=== PATIENT | male | born 1965 | race Caucasian/White ===

== ENCOUNTER → 2018-01-16 08:23 | Outpatient (CLI) | payer OTHER, SELFPAY ==
[2018-01-16 09:25] LABS: Absolute Neutrophil Count 3.8 X10^3/uL (2.0-7.7); Basophil# 0.08 X10^3/uL; Basophil% 1.1 % (0-1); Eosinophil# 0.73 X10^3/uL; Eosinophils% 9.8 % (0-5); Hematocrit 46.3 % (40-54); Hemoglobin 15.8 g/dl (13.0-16.5); Lymphocyte % 28.1 % (19-41); Mean Corp Hgb Conc 34.1 g/gl (32-36); Mean Corpuscular Hgb 30.2 pg (27.0-32.0); Mean Corpuscular Volume 88.5 fL (80-94); Mean Platelet Vol. 10.8 fl (6.2-12.0); Monocyte# 0.75 X10^3/uL; Neutrophil # 3.79 X10^3/uL (2.7-7.7); Neutrophil % 50.7 % (47-70); Platelet Count 227 K/mm3 (150-450); RBC Distribution Width CV 13.1 % (11.6-14.6); RBC Distribution Width SD 42.6 fl (35.1-43.9); Red Blood Count 5.23 M/mm3 (4.6-6.2); White Blood Count 7.5 K/mm3 (4.4-11.0)
[2018-01-16 09:28] LABS: POSITIVE COUNT NO; POSITIVE DIFFERENTIAL NO; POSITIVE MORPHOLOGY NO
[2018-01-16 09:41] LABS: Hemoglobin A1c 7.5 % (4.2-6.3)
[2018-01-16 10:08] LABS: ALB/GLOB Ratio 1.2 RATIO (0.9-2.4); AST(SGOT) 11 U/L (15-37); Alanine Aminotransfer ALT/SGPT 19 U/L (16-61); Albumin, Serum 3.5 g/dL (3.2-5.0); Alkaline Phosphatase 82 U/L (45-117); Anion Gap 7 (5-15); BUN 13 mg/dL (7-18); BUN/Creat Ratio 14.1 RATIO (10-20); Calcium,Total 8.2 mg/dL (8.5-10.1); Chloride 110 mmol/L (98-107); Cholesterol 109 mg/dL (200); Creatinine, Serum 0.92 mg/dL (0.70-1.30); EST Glomerular Filtration Rate 92 mL/min (>60); Est Glom Filt Rate - Afr Amer 111 mL/min (>60); Glucose 136 mg/dL (74-106); High Density Lipoprotein 40 mg/dL; Potassium 4.1 mmol/L (3.5-5.1); Protein, Total 6.5 g/dL (6.4-8.2); Sodium Level 143 mmol/L (136-145); Triglycerides 51 mg/dL; Very Low Density Lipoprotein 10 mg/dL (5-40)
[2018-01-16 11:28] LABS: Microalbumin,Random Urine 20.2 mg/L (NO RANGE EST.); Microalbumin:Creatinine Ratio 13.9 mg/g CRE (<30 mg/g CRE)
== END ==
PROVIDERS: Family Provider Internal Medicine; PCP Internal Medicine; Visit Provider Internal Medicine
DX: E10.9 Type 1 diabetes mellitus without complications (principal); E78.5 Hyperlipidemia, unspecified; I10 Essential (primary) hypertension
CPT/HCPCS: 36415; 80053; 80061; 82043; 82570; 83036; 85025

== ENCOUNTER → 2018-03-14 16:27 | Outpatient (CLI) | payer OTHER, SELFPAY ==
--- NOTE | 2018-03-14 08:10 | COLBX_PTH ---
PATIENT: SAULO LEAHY LOC: [facility] U#:[id number] AGE/SX: 60/M ROOM: RE03/14/[address]: Dr. Remigio Vegas MD : [id number] BED: DIS: SPEC #: [id number] RECD: 03/14/18 15:35 STATUS: CHANDANA JENNYFER #: [id number] ZAYNAB: 03/14/18 08:[address]: Remigio Vegas DEPT: SURGICAL PATHOLOGY RECD BY: Samir Israel ENTERED: 03/17/18 08:36 SP TYPE: COLON BX OTHR DR: MARIELOS Tissues: Transverse colon Procedures: Surgery Specimen Level IV HEADER OPERATION: Colonoscopy PRE-OP DIAGNOSIS: Screening / polyp TISSUE SUBMITTED: Transverse colon, rule out adenoma MICROSCOPIC DIAGNOSIS Transverse colon polyp, biopsy: Polypoid fragment of colonic mucosa and submucosa. AM:chauncey 03/18/18 COMMENT Neither adenomatous nor hyperplastic change is seen. MICROSCOPIC DESCRIPTION Slides are reviewed. Sections show normal glandular colonic epithelium overlying a prominent polypoid submucosal tissue consisting of loose stroma and mild vascular ectasia. GROSS DESCRIPTION Received in fixative is one container labeled with the patient's name and designated transverse colon. The specimen consists of a baldwin-pink polyp measuring 0.7 x 0.5 x 0.4 cm. The specimen is totally submitted in one cassette. / SJ:chauncey 03/17/18 TC:1 CPT: 36853
== END ==
PROVIDERS: Visit Provider Internal Medicine Gastroenterology
DX: Z12.11 Encounter for screening for malignant neoplasm of colon (principal); K63.5 Polyp of colon
CPT/HCPCS: 88305

== ENCOUNTER → 2019-05-26 | Outpatient (CLI) | payer OTHER, SELFPAY ==
[2019-05-26 11:04] LABS: Hemoglobin A1c 6.8 % (4.2-6.3)
[2019-05-26 11:10] LABS: ALB/GLOB Ratio 1.2 RATIO (0.9-2.4); AST(SGOT) 12 U/L (15-37); Alanine Aminotransfer ALT/SGPT 23 U/L (16-61); Albumin, Serum 3.9 g/dL (3.2-5.0); Alkaline Phosphatase 75 U/L (45-117); Anion Gap 7 (5-15); BUN 19 mg/dL (7-18); BUN/Creat Ratio 21.5 RATIO (10-20); Chloride 107 mmol/L (98-107); Cholesterol 176 mg/dL (200); Creatinine, Serum 0.88 mg/dL (0.70-1.30); EST Glomerular Filtration Rate 96 mL/min (>60); Est Glom Filt Rate - Afr Amer 116 mL/min (>60); Globulin 3.2 g/dL (2.2-4.2); Glucose 115 mg/dL (74-106); High Density Lipoprotein 48 mg/dL; Potassium 4.2 mmol/L (3.5-5.1); Protein, Total 7.1 g/dL (6.4-8.2); Sodium Level 143 mmol/L (136-145); Triglycerides 72 mg/dL; Very Low Density Lipoprotein 14 mg/dL (5-40)
== END | disposition home or self-care (01) ==
LOC: LAB.FUTURE 09:29 → LAB 09:33
PROVIDERS: Family Provider Internal Medicine; PCP Internal Medicine; Referring Provider Nurse Practitioner; Visit Provider Nurse Practitioner
DX: E10.9 Type 1 diabetes mellitus without complications (principal)
CPT/HCPCS: 36415; 80053; 80061; 83036

== ENCOUNTER → 2019-10-23 | Outpatient (CLI) | payer OTHER, SELFPAY ==
[2019-07-06 15:38] VITALS: BMI 34.1
[2019-10-23 07:32] LABS: Microalbumin,Random Urine 27.1 mg/L (NO RANGE EST.); Microalbumin:Creatinine Ratio 29.1 mg/g CRE (<30 mg/g CRE)
[2019-10-23 07:55] LABS: ALB/GLOB Ratio 1.2 RATIO (0.9-2.4); AST(SGOT) 15 U/L (15-37); Alanine Aminotransfer ALT/SGPT 26 U/L (16-61); Albumin, Serum 3.5 g/dL (3.2-5.0); Alkaline Phosphatase 82 U/L (45-117); Anion Gap 0 (5-15); BUN 15 mg/dL (7-18); BUN/Creat Ratio 15.3 RATIO (10-20); Calcium,Total 8.7 mg/dL (8.5-10.1); Chloride 111 mmol/L (98-107); Cholesterol 150 mg/dL (200); Creatinine, Serum 0.98 mg/dL (0.70-1.30); EST Glomerular Filtration Rate 85 mL/min (>60); Est Glom Filt Rate - Afr Amer 103 mL/min (>60); Globulin 2.9 g/dL (2.2-4.2); Glucose 130 mg/dL (74-106); High Density Lipoprotein 41 mg/dL; Potassium 4.1 mmol/L (3.5-5.1); Protein, Total 6.4 g/dL (6.4-8.2); Sodium Level 141 mmol/L (136-145); Triglycerides 92 mg/dL; Very Low Density Lipoprotein 18 mg/dL (5-40)
[2019-10-23 08:00] LABS: Hemoglobin A1c 7.1 % (4.2-6.3)
== END | disposition home or self-care (01) ==
LOC: LAB 06:45
PROVIDERS: PCP Internal Medicine; Referring Provider Nurse Practitioner; Visit Provider Nurse Practitioner
DX: E11.9 Type 2 diabetes mellitus without complications (principal)
CPT/HCPCS: 36415; 80053; 80061; 82043; 82570; 83036

== ENCOUNTER → 2020-01-27 14:03 | Outpatient (CLI) | payer OTHER, SELFPAY ==
[2020-01-27 11:50] VITALS: BMI 34.1
[2020-01-27 15:10] LABS: Absolute Lymphocyte Count 1.73 X10^3/uL (0.83-4.51); Absolute Neutrophil Count 4.7 X10^3/uL (2.0-7.7); Basophil# 0.08 X10^3/uL; Eosinophil# 0.43 X10^3/uL; Eosinophils% 5.6 % (0-5); Hematocrit 50.5 % (40-54); Hemoglobin 16.5 g/dL (13.0-16.5); Lymphocyte # 1.73 X10^3/ul (4.0); Lymphocyte % 22.6 % (19-41); Mean Corp Hgb Conc 32.7 g/dL (32-36); Mean Corpuscular Hgb 29.7 pg (27.0-32.0); Mean Platelet Vol. 11.1 fl (6.2-12.0); Monocyte# 0.64 X10^3/uL; Monocyte% 8.4 % (0-10); NRBC Flagged by Analyzer 0 % (0-5); Neutrophil # 4.71 X10^3/uL (2.7-7.7); Neutrophil % 61.7 % (47-70); Platelet Count 250 K/mm3 (150-450); RBC Distribution Width CV 12.9 % (11.6-14.6); RBC Distribution Width SD 42.5 fl (35.1-43.9); Red Blood Count 5.55 M/mm3 (4.6-6.2); White Blood Count 7.6 K/mm3 (4.4-11.0)
[2020-01-27 15:37] LABS: ALB/GLOB Ratio 1.1 RATIO (0.9-2.4); AST(SGOT) 16 U/L (15-37); Alanine Aminotransfer ALT/SGPT 25 U/L (16-61); Albumin, Serum 3.9 g/dL (3.2-5.0); Alkaline Phosphatase 88 U/L (45-117); Anion Gap 7 (5-15); BUN 17 mg/dL (7-18); BUN/Creat Ratio 17.6 RATIO (10-20); Calcium,Total 9.3 mg/dL (8.5-10.1); Chloride 107 mmol/L (98-107); Cholesterol 174 mg/dL (200); Creatinine, Serum 0.96 mg/dL (0.70-1.30); EST Glomerular Filtration Rate 87 mL/min (>60); Est Glom Filt Rate - Afr Amer 105 mL/min (>60); Globulin 3.4 g/dL (2.2-4.2); Glucose 134 mg/dL (74-106); High Density Lipoprotein 46 mg/dL; Potassium 4.4 mmol/L (3.5-5.1); Protein, Total 7.3 g/dL (6.4-8.2); Sodium Level 139 mmol/L (136-145); Thyroid Stim Hormone (TSH) 2.68 uIU/mL (0.358-3.74); Triglycerides 61 mg/dL; Very Low Density Lipoprotein 12 mg/dL (5-40)
[2020-01-27 15:46] LABS: Microalbumin,Random Urine 28.2 mg/L (NO RANGE EST.); Microalbumin:Creatinine Ratio 66.5 mg/g CRE (<30 mg/g CRE)
--- OUTSIDE RECORDS SUMMARY | 2020-06-21 14:40 | XMS RPT_ITS | CCD ---
:1965 External Reference #:[id number] Author Organization [facility] Care Team Providers Name Role Phone Fatou NELSON, Rebecca Muniz Unavailable Unavailable Medications Medication Name Sig Date Prescriber Location ascorbic acid / cuprous OCUVITE-LUTEIN CAPS [facility] oxide / lutein / One tablet by mouth Grou p (81794) vitamin E / zinc oxide daily MULTIPLE VITAMINS-MINERALS [id number] Jo Acuna NP aspirin ASPIRIN 325 MG TABS [facility] One tablet by mouth Group (4 4811) daily ASPIRIN 83693399898 Qiana Valle LPN atorvastatin LIPITOR 20 MG TABS One [facility] tablet by mouth daily Group (79469) ATORVASTATIN CALCIUM 84750785301 Qiana Valle LPN BLOOD GLUCOSE YUE CONTOUR NEXT [facility] MONITORING SUPPL MONITOR w/Device KIT [place] [facility] (92506) Use as directed. BLOOD GLUCOSE MONITORING SUPPL 24085346032 Jo Acuna NP GLUCOSE BLOOD YUE CONTOUR NEXT [facility] TEST STRP Use as Group (4431 1) directed to test blood glucose up to 3 times a day. GLUCOSE BLOOD 37617116949 Jo Acuna NP INSULIN INFUSION PUMP MINIMED 630G INSULIN [facility] PUMP KIT Use as Group (21036 ) directed INSULIN INFUSION PUMP 60230099402 Jo Acuna NP insulin lispro HUMALOG 100 UNIT/ML [facility] SOCT 97 units daily Group (4 4785) delivered via pump INSULIN LISPRO 86662836540 Qiana Valle LPN lisinopril LISINOPRIL 10 MG TABS [facility] One tablet by mouth Group (4 0518) daily LISINOPRIL 42913354302 Qiana Valle LPN magnesium M2 MAGNESIUM 100 MG 09-26-2016 [facility] CAPS One tablet by Group (44 451) mouth daily MAGNESIUM 04463795351 Tomas Sandoval MD M2 MAGNESIUM 100 MG CAPS One tablet by mouth daily [facility] (28534) MAGNESIUM 86744989654 Qiana Valle PRODUCT SAFETY COORDINATOR metoprolol METOPROLOL SUCCINATE ER 100 MG [facility] (30368) [id number] One tablet by mouth daily METOPROLOL SUCCINATE 75281873713 Qiana Fournieri PRODUCT SAFETY COORDINATOR potassium,chelated POTASSIUM 99 MG TABS One tablet by [facility] (92127) mouth daily POTASSIUM 93376966064 Jo Acuna PRINCIPAL ASSOCIATE Problems Active Problems Category Problem Name Status Date Location Cardiac and circulatory Patent foramen ovale Active 7 - [facility] congenital anomalies Group ( 84849) Coronary atherosclerosis Atherosclerotic heart Active 017 - [facility] and other heart disease disease of [place] Group (98646) coronary artery without angina pectoris Diabetes mellitus Presence of insulin pump Active 09-17-2016 - [facility] without complication (external) (internal) Group (73633) Disorders of lipid Hyperlipidemia Active 09-17-2016 - [facility] metabolism Group (02332) Essential hypertension Essential hypertension Active 09-17-19 17 - [facility] (87823) Other nutritional; Body mass index 30+ - Active 09-17-2016 - [facility] endocrine; and metabolic obesity - 09-25-2016 [facility] (81919) disorders - Past or Other Problems Category Problem Name Status Date Location Other aftercare Other terminal worker Completed 09-25-2016 - [facility] (current) drug therapy (4469 1) Results Result Name Value Range Unit Interpretation Flag Date Location clinical lists update: preload on 2017-04-03 Left ventricular 55 % Invalid Interpretation 04-03-2017 - [facility] Ejection fraction Code 04-03-2017 Rubina henry ([id number]) replaced document: [facility] ecg observati ons on 2016-09-26 electrocardiogram Sinus Rhythm Invalid 7 - [facility] interpretation -Poor R-wave Interpretation 017 Heart progression Code Group -nonspecific (01237) -consider old anterior infarct. BORDERLINE GE use only - for 407 ms Invalid 09-26-2016 - [place] [facility] import when Interpretation Heart terms are not Code Group otherwise specified (57627) P wave axis, 49 deg Invalid 09-26-2016 - [facility] electrocardiogram Interpretation 017 [facility] Code Group (12555) CT interval, 148 ms Invalid 09-26-2016 - [facility] electrocardiogram Interpretation 017 [facility] Code Group (87966) Pulse (Heart Rate) 71 BPM /min Invalid 09-26-2016 - [place] Interpretation 09-26-2016 Hear t Code Group (92125) QRS axis, 46 deg Invalid 09-26-2016 - [place] electrocardiogram Interpretation 017 [facility] Code Group (85106) QRS duration, 96 ms Invalid 09-26-2016 - [facility] electrocardiogram Interpretation 017 [facility] Code Group (93968) QT interval, new path ms Invalid 09-26-2016 - [place] [facility] Interpretation 017 [facility] Code Group (82159) T wave axis, 53 deg Invalid 09-26-2016 - [facility] electrocardiogram Interpretation 017 Heart Code Group (37321) office visit on 03-09-18 Documentation of Done Invalid Interpretation 09-26-2016 - [facility] current medications Code 09-26-2016 Group (16949) (procedure) office visit: new patient consult on 2016-09-20 Adolescent 0 Invalid 09-20-2016 - [facility] depression Interpretation Code 7 Group (09686) screening assessment Adult depression 1 Invalid 09-20-2016 - [facility] screening Interpretation Code 09-20-2016 Group (84449) assessment Alcoholism no Invalid 09-20-2016 - [facility] counseling Interpretation Code 7 Group (58980) (procedure) Dietary yes Invalid 09-20-2016 - [facility] management Interpretation Code 7 Group (80965) education, guidance, and counseling (procedure) Tobacco use CPHS Never smoker Invalid 09-20-2016 - [facility] Interpretation Code 09-20-2016 Group (43169) clinical lists update: preload on 2016-09-12 Anion gap 7 mmol/L Invalid 09-12-2016 - [facility] Interpretation Code 09-12-2016 Group (17945) BUN/Creatinine 10.9 mg/mg Invalid 09-12-2016 - [facility] Ratio Interpretation Code 09-12-2016 Group (81621) Calcium 8.5 mg/dL Invalid 09-12-2016 - [facility] Interpretation Code 09-12-2016 Group (80394) Chloride 107 mmol/L Invalid 09-12-2016 - [facility] Interpretation Code 09-12-2016 Group (76123) Cholesterol 146 mg/dL Invalid 09-12-2016 - [facility] Interpretation Code 09-12-2016 Group (72188) CO2 27 mmol/L Invalid 09-12-2016 - [facility] Interpretation Code 09-12-2016 Group (59987) Creatinine 0.92 mg/dL Invalid 09-12-2016 - [facility] Interpretation Code 09-12-2016 Group (75416) Glucose 144 mg/dL High 09-12-2016 - [facility] 09-12-2016 Group (44 691) HbA1c 7.7 % Invalid 09-12-2016 - [facility] Interpretation Code 09-12-2016 Group (85716) HDL Cholesterol 48 mg/dL Invalid 09-12-2016 - [facility] Interpretation Code 09-12-2016 Group (46878) Hematocrit (HCT) 46.4 % Invalid 09-12-2016 - [facility] Interpretation Code 09-12-2016 Group (72112) Hemoglobin (HGB) 16.1 g/dL Invalid 09-12-2016 - [facility] Interpretation Code 09-12-2016 Group (80945) LDL Cholesterol 89 mg/dL Invalid 09-12-2016 - [facility] Interpretation Code 09-12-2016 Group (93221) Platelets 243 10*3/mm3 Invalid 09-12-2016 - [facility] Interpretation Code 09-12-2016 Group (58085) Potassium 4.1 mmol/L Invalid 09-12-2016 - [facility] Interpretation Code 09-12-2016 Group (71932) Sodium 141 mmol/L Invalid 09-12-2016 - [facility] Interpretation Code 09-12-2016 Group (35377) Triglyceride 43 mg/dL Invalid 09-12-2016 - [facility] Interpretation Code 09-12-2016 Group (26738) Urea nitrogen 10 mg/dL Invalid 09-12-2016 - [facility] Interpretation Code 09-12-2016 Group (36290) Vital Signs Vital Sign Description Value / Unit Date Location The following section is limited to 5 en tries per type and includes entries from the following time range: [id number] 8. BMI (Body Mass Index) 33.75 kg/m2 09-26-2016 - 09-26-2016 [facility] (21905) Body Temperature 98.6 [degF] 09-20-2016 - 09-20-2016 [facility] (80267) BP Diastolic 60 mm[Hg] 09-26-2016 - 09-26-2016 [facility] (89937) BP Systolic 140 mm[Hg] 09-26-2016 - 09-26-2016 [facility] (36514) BSA (Body Surface Area) 2.14 m2 09-26-2016 - 09-26-2016 [facility] (34216) Height 172.72 cm 09-20-2016 - 09-20-2016 [facility] (40846) Pulse (Heart Rate) 76 /min 09-26-2016 - 09-26-2016 [facility] (24637) Respiratory Rate 20 /min 09-26-2016 - 09-26-2016 [facility] (79252) Weight 100.7 kg 09-26-2016 - 09-26-2016 [facility] (77834) Procedures Procedure Name Date Provider Location [facility] 09-26-2016 - Tomas Sandoval [facility] 09-26-2016 ([id number]) Echocardiography 09-26-2016 - Tomas Sandoval MD [facility] 10-15-2016 (88379) Electrocardiogram, complete 09-26-2016 - Tomas Sandoval MD [facility] 09-26-2016 (43318) Follow Up Appt 6 months 09-26-2016 - Tomas Sandoval MD [facility] 09-26-2016 (84822) Nuclear stress test -exercise 09-26-2016 - Tomas Sandoval MD [facility] 10-15-2016 (17414) Plan of Treatment Plan Description Date Location Appointment Appointment 04-09-2017 - [facility] 04-09-2017 (39791) [facility] 09-26-2016 - [facility] 09-26-2016 (72326) Echocardiogram (complete) Echocardiogram (complete) 09-26-2016 - [facility] 09-26-2016 (32351) EKG (In office) EKG (In office) 09-26-2016 - [facility] 09-26-2016 (89450) Follow Up Appt 6 months Follow Up Appt 6 months 09-26-2016 - [facility] 09-26-2016 (67197) Nuclear stress test Nuclear stress test 09-26-2016 - [facility] -exercise -exercise 09-26-2016 (95772) *Microalbumin, Creatine *Microalbumin, Creatine 09-20-2016 - [facility] Ratio, rand urine Ratio, rand urine 09-24-2016 (35509) Additional Source Comments FOR RECORDS PERTAINING TO PATIENTS WHO ARE OR HAVE BEEN ENROLLED IN A CHEMICAL DEPENDENCY/SUBSTANCE ABUSE PROGRAM, SOME INFORMATION MAY BE OMITTED. This clinical summary was aggregated from multiple sources. Caution should be exercised in using it in the provision of clinical care. This summary normalizes information from multiple sources, and as a consequence, information in this document may materially changethe coding, format and clinical context of patient data. In addition, data may be omittedin some cases. CLINICAL DECISIONS SHOULD BE BASED ON THE PRIMARY CLINICAL RECORDS. [employer] provides no warranty or guarantee of the accuracy or completeness of information in this document.
== END ==
PROVIDERS: PCP Nurse Practitioner Family; Referring Provider Nurse Practitioner Family; Visit Provider Nurse Practitioner Family
DX: I25.10 Atherosclerotic heart disease of native coronary artery without angina pectoris (principal); I10 Essential (primary) hypertension; E78.5 Hyperlipidemia, unspecified; E10.9 Type 1 diabetes mellitus without complications; R60.0 Localized edema
CPT/HCPCS: 80053; 80061; 82043; 82570; 84443; 85025

== ENCOUNTER → 2020-02-15 08:58 | Outpatient (CLI) | payer OTHER, SELFPAY ==
[2020-01-27 11:50] VITALS: BMI 34.1
--- NOTE | 2020-02-15 08:58 | ECHOD_ITS ---
Reason For Study: CAD Procedure This was a 2D Doppler, Color Flow transthoracic echocardiogram. Technically difficult study, best apical images taken supine. Exam performed in department. Left Ventricle Normal LV size. Mild concentric left ventricular hypertrophy. The estimated ejection fraction is 60 %. Left ventricular systolic function is normal. Stage 1 diastolic dysfunction. No regional wall motion abnormalities noted. Right Ventricle Normal RV size. Atria Normal left atrium. Normal right atrium. Mitral Valve Normal mitral valve. Tricuspid Valve Normal tricuspid valve. Aortic Valve Normal aortic valve. Trisinus/trileaflet aortic valve. Pulmonic Valve Normal pulmonic valve. Great Vessels Normal aortic root. The pulmonary artery is normal size. Normal inferior vena cava. Pericardium/Pleural No pericardial effusion. MMode/2D Measurements & Calculations LVIDd: 4.7 cm IVSd: 1.3 cm Ao root diam: 3.4 cm LVIDs: 3.0 cm LVPWd: 1.2 cm LA dimension: 4.6 cm FS: 35.7 % LAV(MOD-bp): 38.4 ml LA A4 area: 14.2 cm2 LAV(MOD-bp) Indexed: 17.9 ml/m2 LAV(MOD-sp2): 39.0 ml LAV(MOD-sp4): 35.7 ml Time Measurements MV dec time: 0.31 sec Doppler Measurements & Calculations MV E max dmitriy: 56.0 cm/sec Lat Peak E' Dmitriy: 48.9 cm/sec Med Peak E' Dmitriy: 5.9 cm/sec MV A max dmitriy: 105.2 cm/sec E/E' lat: 1.1 E/E' med: 9.4 MV E/A: 0.53 MV V2 max: 113.6 cm/sec MV P1/2t max dmitriy: 68.4 cm/sec Ao V2 max: 106.9 cm/sec MV max P.2 mmHg MV P1/2t: 91.8 msec Ao max P.6 mmHg MV V2 mean: 56.5 cm/sec MV dec slope: 218.1 cm/sec2 MV mean P.5 mmHg MVA(P1/2t): 2.4 cm2 MV V2 VTI: 22.4 cm PA V2 max: 109.8 cm/sec Interpretation Summary Normal LV size. The estimated ejection fraction is 60 %. Left ventricular systolic function is normal. Stage 1 diastolic dysfunction. Mild concentric left ventricular hypertrophy. Ordering Physician: Ashish Campuzano Referring Physician: Ashish Campuzano Performed By: Miles Fleming RCS
--- NOTE | 2020-02-15 08:58 | EKG12_ITS ---
Test Reason : ILLNESS Blood Pressure : / mmHG Vent. Rate : 080 BPM Atrial Rate : 080 BPM P-R Int : 164 ms QRS Dur : 108 ms QT Int : 380 ms P-R-T Axes : 054 019 053 degrees QTc Int : 438 ms Normal sinus rhythm Inferior infarct , age undetermined Abnormal ECG Confirmed by JASIEL LOYD, MARTY ([id number]), sound editor HORTENCIA GREEN ([id number]) on 02/16/2020 10:08:37 AM Referred By: Ashish Campuzano Confirmed By:MARTY WEATHERS MD
--- OUTSIDE RECORDS SUMMARY | 2020-06-26 09:24 | XMS RPT_ITS | CCD ---
:1965 External Reference #:[id number] Author Organization [facility] Care Team Providers Name Role Phone Fatou NELSON, Rebecca Muniz Unavailable Unavailable Medications Medication Name Sig Date Prescriber Location ascorbic acid / cuprous OCUVITE-LUTEIN CAPS [facility] oxide / lutein / One tablet by mouth Grou p (16224) vitamin E / zinc oxide daily MULTIPLE VITAMINS-MINERALS [id number] Jo Acuna NP aspirin ASPIRIN 325 MG TABS [facility] One tablet by mouth Group (4 0213) daily ASPIRIN 62286258617 Qiana Valle LPN atorvastatin LIPITOR 20 MG TABS One [facility] tablet by mouth daily Group (95284) ATORVASTATIN CALCIUM 97691775148 Qiana Valle LPN BLOOD GLUCOSE YUE CONTOUR NEXT [facility] MONITORING SUPPL MONITOR w/Device KIT [facility] (56378) Use as directed. BLOOD GLUCOSE MONITORING SUPPL 98250229801 Jo Acuna NP GLUCOSE BLOOD YUE CONTOUR NEXT [facility] TEST STRP Use as Group (4414 1) directed to test blood glucose up to 3 times a day. GLUCOSE BLOOD 92104660881 Jo Acuna NP INSULIN INFUSION PUMP MINIMED 630G INSULIN [facility] PUMP KIT Use as Group (24403 ) directed INSULIN INFUSION PUMP 36968941430 Jo Acuna NP insulin lispro HUMALOG 100 UNIT/ML [facility] SOCT 97 units daily Group (4 1356) delivered via pump INSULIN LISPRO 90132020644 Qiana Valle LPN lisinopril LISINOPRIL 10 MG TABS [facility] One tablet by mouth Group (4 2504) daily LISINOPRIL 67067108310 Qiana Valle LPN magnesium M2 MAGNESIUM 100 MG 09-26-2016 [facility] CAPS One tablet by Group (44 966) mouth daily MAGNESIUM 17052679187 Tomas Sandoval MD M2 MAGNESIUM 100 MG CAPS One tablet by mouth daily [facility] (63306) MAGNESIUM 40117813570 Qiana Valle EXHIBIT SPECIALIST metoprolol METOPROLOL SUCCINATE ER 100 MG [facility] (42538) [id number] One tablet by mouth daily METOPROLOL SUCCINATE 40392924854 Qiana Fournieri EXHIBIT SPECIALIST potassium,chelated POTASSIUM 99 MG TABS One tablet by [facility] (38704) mouth daily POTASSIUM 30723104979 Jo Acuna TELEVISION HOST Problems Active Problems Category Problem Name Status Date Location Cardiac and circulatory Patent foramen ovale Active 7 - [facility] congenital anomalies Group ( 65438) Coronary atherosclerosis Atherosclerotic heart Active 017 - [facility] and other heart disease disease of [place] Group (13411) coronary artery without angina pectoris Diabetes mellitus Presence of insulin pump Active 09-17-2016 - [facility] without complication (external) (internal) Group (93196) Disorders of lipid Hyperlipidemia Active 09-17-2016 - [facility] metabolism Group (81359) Essential hypertension Essential hypertension Active 09-17-19 17 - [facility] (69325) Other nutritional; Body mass index 30+ - Active 09-17-2016 - [facility]; and metabolic obesity - 09-25-2016 [facility] (95404) disorders - Past or Other Problems Category Problem Name Status Date Location Other aftercare Other intermission coordinator Completed 09-25-2016 - [facility] (current) drug therapy (4469 1) Results Result Name Value Range Unit Interpretation Flag Date Location clinical lists update: preload on 2017-04-03 Left ventricular 55 % Invalid Interpretation 04-03-2017 - [facility] Ejection fraction Code 04-03-2017 Rubina henry (11715) replaced document: [facility] ecg observati ons on 2016-09-26 electrocardiogram Sinus Rhythm Invalid 7 - [facility] interpretation -Poor R-wave Interpretation 017 Heart progression Code Group -nonspecific (58926) -consider old anterior infarct. BORDERLINE GE use only - for 407 ms Invalid 09-26-2016 - [place] [facility] import when Interpretation Heart terms are not Code Group otherwise specified (30707) P wave axis, 49 deg Invalid 09-26-2016 - [facility] electrocardiogram Interpretation 017 [facility] Code Group (78755) NV interval, 148 ms Invalid 09-26-2016 - [facility] electrocardiogram Interpretation 017 [facility] Code Group (45587) Pulse (Heart Rate) 71 BPM /min Invalid 09-26-2016 - [place] Interpretation 09-26-2016 Hear t Code Group (21653) QRS axis, 46 deg Invalid 09-26-2016 - [place] [facility]ogram Interpretation 017 [facility] Code Group (62050) QRS duration, 96 ms Invalid 09-26-2016 - [place] [facility] electrocardiogram Interpretation 017 [facility] Code Group (35645) QT interval, new path ms Invalid 09-26-2016 - [place] [facility] Interpretation 017 [facility] Code Group (96319) T wave axis, 53 deg Invalid 09-26-2016 - [facility] electrocardiogram Interpretation 017 [facility] Code Group (72758) office visit on 03-09-18 Documentation of Done Invalid Interpretation 09-26-2016 - [facility] current medications Code 09-26-2016 Group (97559) (procedure) office visit: new patient consult on 2016-09-20 Adolescent 0 Invalid 09-20-2016 - [facility] depression Interpretation Code 7 Group (87124) screening assessment Adult depression 1 Invalid 09-20-2016 - [facility] screening Interpretation Code 09-20-2016 Group (62610) assessment Alcoholism no Invalid 09-20-2016 - [facility] counseling Interpretation Code 7 Group (18508) (procedure) Dietary yes Invalid 09-20-2016 - [facility] management Interpretation Code 7 Group (84867) education, guidance, and counseling (procedure) Tobacco use CPHS Never smoker Invalid 09-20-2016 - [facility] Interpretation Code 09-20-2016 Group (87118) clinical lists update: preload on 2016-09-12 Anion gap 7 mmol/L Invalid 09-12-2016 - [facility] Interpretation Code 09-12-2016 Group (91559) BUN/Creatinine 10.9 mg/mg Invalid 09-12-2016 - [facility] Ratio Interpretation Code 09-12-2016 Group (72148) Calcium 8.5 mg/dL Invalid 09-12-2016 - [facility] Interpretation Code 09-12-2016 Group (60049) Chloride 107 mmol/L Invalid 09-12-2016 - [facility] Interpretation Code 09-12-2016 Group (60848) Cholesterol 146 mg/dL Invalid 09-12-2016 - [facility] Interpretation Code 09-12-2016 Group (60506) CO2 27 mmol/L Invalid 09-12-2016 - [facility] Interpretation Code 09-12-2016 Group (69563) Creatinine 0.92 mg/dL Invalid 09-12-2016 - [facility] Interpretation Code 09-12-2016 Group (89170) Glucose 144 mg/dL High 09-12-2016 - [facility] 09-12-2016 Group (44 691) HbA1c 7.7 % Invalid 09-12-2016 - [facility] Interpretation Code 09-12-2016 Group (68727) HDL Cholesterol 48 mg/dL Invalid 09-12-2016 - [facility] Interpretation Code 09-12-2016 Group (80001) Hematocrit (HCT) 46.4 % Invalid 09-12-2016 - [facility] Interpretation Code 09-12-2016 Group (48593) Hemoglobin (HGB) 16.1 g/dL Invalid 09-12-2016 - [facility] Interpretation Code 09-12-2016 Group (37605) LDL Cholesterol 89 mg/dL Invalid 09-12-2016 - [facility] Interpretation Code 09-12-2016 Group (37726) Platelets 243 10*3/mm3 Invalid 09-12-2016 - [facility] Interpretation Code 09-12-2016 Group (40421) Potassium 4.1 mmol/L Invalid 09-12-2016 - [facility] Interpretation Code 09-12-2016 Group (84187) Sodium 141 mmol/L Invalid 09-12-2016 - [facility] Interpretation Code 09-12-2016 Group (54624) Triglyceride 43 mg/dL Invalid 09-12-2016 - [facility] Interpretation Code 09-12-2016 Group (63538) Urea nitrogen 10 mg/dL Invalid 09-12-2016 - [facility] Interpretation Code 09-12-2016 Group (60626) Vital Signs Vital Sign Description Value / Unit Date Location The following section is limited to 5 en tries per type and includes entries from the following time range: [id number] 8. BMI (Body Mass Index) 33.75 kg/m2 09-26-2016 - 09-26-2016 [facility] (86818) Body Temperature 98.6 [degF] 09-20-2016 - 09-20-2016 [facility] (74987) BP Diastolic 60 mm[Hg] 09-26-2016 - 09-26-2016 [facility] (38351) BP Systolic 140 mm[Hg] 09-26-2016 - 09-26-2016 [facility] (55275) BSA (Body Surface Area) 2.14 m2 09-26-2016 - 09-26-2016 [facility] (60852) Height 172.72 cm 09-20-2016 - 09-20-2016 [facility] (59252) Pulse (Heart Rate) 76 /min 09-26-2016 - 09-26-2016 [facility] (16595) Respiratory Rate 20 /min 09-26-2016 - 09-26-2016 [facility] (41231) Weight 100.7 kg 09-26-2016 - 09-26-2016 [facility] (31588) Procedures Procedure Name Date Provider Location [facility] 09-26-2016 - Tomas Sandoval MD [facility] 09-26-2016 (06558) Echocardiography 09-26-2016 - Tomas Sandoval MD [facility] 10-15-2016 (06435) Electrocardiogram, complete 09-26-2016 - Tomas Sandoval MD [facility] 09-26-2016 (51259) Follow Up Appt 6 months 09-26-2016 - Tomas Sandoval MD [facility] 09-26-2016 (64679) Nuclear stress test -exercise 09-26-2016 - Tomas Sandoval MD [facility] 10-15-2016 (89166) Plan of Treatment Plan Description Date Location Appointment Appointment 04-09-2017 - [facility] 04-09-2017 (05648) [facility] 09-26-2016 - [facility] 09-26-2016 (88977) Echocardiogram (complete) Echocardiogram (complete) 09-26-2016 - [facility] 09-26-2016 (68909) EKG (In office) EKG (In office) 09-26-2016 - [facility] 09-26-2016 (22806) Follow Up Appt 6 months Follow Up Appt 6 months 09-26-2016 - [facility] 09-26-2016 (90262) Nuclear stress test Nuclear stress test 09-26-2016 - [facility] -exercise -exercise 09-26-2016 (36820) *Microalbumin, Creatine *Microalbumin, Creatine 09-20-2016 - [facility] Ratio, rand urine Ratio, rand urine 09-24-2016 (91657) Additional Source Comments FOR RECORDS PERTAINING TO [...] BE BASED ON THE PRIMARY CLINICAL RECORDS. [employer] provides no warranty or guarantee of the accuracy or completeness of information in this document.
== END ==
PROVIDERS: PCP Internal Medicine; Referring Provider Nurse Practitioner Family; Visit Provider Nurse Practitioner Family
DX: I25.10 Atherosclerotic heart disease of native coronary artery without angina pectoris (principal); E10.9 Type 1 diabetes mellitus without complications; E78.5 Hyperlipidemia, unspecified; I10 Essential (primary) hypertension; R60.0 Localized edema
CPT/HCPCS: 93005; 93306

== ENCOUNTER → 2020-07-14 15:38 | Outpatient (CLI) | payer OTHER, SELFPAY ==
[2020-07-14 15:08] VITALS: BMI 36.3
[2020-07-14 17:36] LABS: Anion Gap 5 (5-15); BUN 13 mg/dL (7-18); BUN/Creat Ratio 12.4 RATIO (10-20); Calcium,Total 9.4 mg/dL (8.5-10.1); Chloride 107 mmol/L (98-107); Creatinine, Serum 1.05 mg/dL (0.70-1.30); EST Glomerular Filtration Rate 78 mL/min (>60); Est Glom Filt Rate - Afr Amer 95 mL/min (>60); Glucose 214 mg/dL (74-106); Potassium 4.7 mmol/L (3.5-5.1); Sodium Level 140 mmol/L (136-145)
== END ==
PROVIDERS: PCP Internal Medicine; Referring Provider Internal Medicine; Visit Provider Internal Medicine
DX: I10 Essential (primary) hypertension (principal)
CPT/HCPCS: 36415; 80048

== ENCOUNTER → 2021-01-25 14:02 | Outpatient (CLI) | payer OTHER, SELFPAY ==
[2021-01-25 13:42] VITALS: BMI 35.6
[2021-01-25 15:03] LABS: Absolute Neutrophil Count 6.3 X10^3/uL (2.0-7.7); Basophil# 0.12 X10^3/uL; Basophil% 1.2 % (0-1); Eosinophil# 0.65 X10^3/uL; Eosinophils% 6.5 % (0-5); Hematocrit 48.5 % (40-54); Lymphocyte % 21.1 % (19-41); Mean Corpuscular Hgb 29.8 pg (27.0-32.0); Mean Corpuscular Volume 90.3 fL (80-94); Mean Platelet Vol. 10.4 fl (6.2-12.0); Monocyte# 0.71 X10^3/uL; Monocyte% 7.1 % (0-10); NRBC Flagged by Analyzer 0 % (0-5); Neutrophil # 6.33 X10^3/uL (2.7-7.7); Neutrophil % 63.5 % (47-70); Platelet Count 251 K/mm3 (150-450); RBC Distribution Width CV 13.1 % (11.6-14.6); RBC Distribution Width SD 42.8 fl (35.1-43.9); Red Blood Count 5.37 M/mm3 (4.6-6.2)
[2021-01-25 16:54] LABS: ALB/GLOB Ratio 1.4 RATIO (0.9-2.4); AST(SGOT) 16 U/L (15-37); Alanine Aminotransfer ALT/SGPT 29 U/L (16-61); Albumin, Serum 4.2 g/dL (3.2-5.0); Alkaline Phosphatase 92 U/L (45-117); Anion Gap 3 (5-15); BUN 13 mg/dL (7-18); BUN/Creat Ratio 13.3 RATIO (10-20); Calcium,Total 9.4 mg/dL (8.5-10.1); Chloride 106 mmol/L (98-107); Cholesterol 137 mg/dL (200); Creatinine, Serum 0.98 mg/dL (0.70-1.30); EST Glomerular Filtration Rate 85 mL/min (>60); Est Glom Filt Rate - Afr Amer 102 mL/min (>60); Globulin 3.1 g/dL (2.2-4.2); Glucose 145 mg/dL (74-106); High Density Lipoprotein 54 mg/dL; Potassium 4.7 mmol/L (3.5-5.1); Protein, Total 7.3 g/dL (6.4-8.2); Sodium Level 141 mmol/L (136-145); Triglycerides 63 mg/dL; Very Low Density Lipoprotein 13 mg/dL (5-40)
[2021-01-25 17:05] LABS: Microalbumin,Random Urine 48.8 mg/L (NO RANGE EST.); Microalbumin:Creatinine Ratio 128.8 mg/g CRE (<30 mg/g CRE)
== END ==
PROVIDERS: PCP Internal Medicine; Referring Provider Internal Medicine; Visit Provider Internal Medicine
DX: I10 Essential (primary) hypertension (principal); E10.9 Type 1 diabetes mellitus without complications
CPT/HCPCS: 36415; 80053; 80061; 82043; 82570; 85025

== ENCOUNTER → 2021-04-27 14:26 | Outpatient (CLI) | payer OTHER, SELFPAY ==
[2021-04-27 15:45] LABS: Microalbumin,Random Urine 20.7 mg/L (NO RANGE EST.); Microalbumin:Creatinine Ratio 29.6 mg/g CRE (<30 mg/g CRE)
[2021-04-27 16:04] LABS: ALB/GLOB Ratio 1.2 RATIO (0.9-2.4); AST(SGOT) 30 U/L (15-37); Alanine Aminotransfer ALT/SGPT 31 U/L (16-61); Alkaline Phosphatase 80 U/L (45-117); Anion Gap 4 (5-15); BUN 17 mg/dL (7-18); BUN/Creat Ratio 18.2 RATIO (10-20); Calcium,Total 9.2 mg/dL (8.5-10.1); Chloride 102 mmol/L (98-107); Creatinine, Serum 0.93 mg/dL (0.70-1.30); EST Glomerular Filtration Rate 90 mL/min (>60); Est Glom Filt Rate - Afr Amer 109 mL/min (>60); Globulin 3.3 g/dL (2.2-4.2); Glucose 181 mg/dL (74-106); Potassium 4.4 mmol/L (3.5-5.1); Protein, Total 7.3 g/dL (6.4-8.2); Sodium Level 133 mmol/L (136-145)
== END ==
PROVIDERS: PCP Internal Medicine; Referring Provider Physician Assistant; Visit Provider Physician Assistant
DX: E10.40 Type 1 diabetes mellitus with diabetic neuropathy, unspecified (principal); I12.9 Hypertensive chronic kidney disease with stage 1 through stage 4 chronic kidney disease, or unspecified chronic kidney disease; E10.29 Type 1 diabetes mellitus with other diabetic kidney complication; N18.9 Chronic kidney disease, unspecified; R80.9 Proteinuria, unspecified
CPT/HCPCS: 36415; 80053; 82043; 82570

== ENCOUNTER → 2022-01-29 | Outpatient (CLI) | payer OTHER, SELFPAY ==
[2022-01-29 15:22] LABS: Absolute Lymphocyte Count 1.89 X10^3/uL (0.83-4.51); Absolute Neutrophil Count 5.4 X10^3/uL (2.0-7.7); Basophil# 0.08 X10^3/uL; Eosinophil# 0.38 X10^3/uL; Eosinophils% 4.5 % (0-5); Hematocrit 47.4 % (40-54); Hemoglobin 15.9 g/dL (13.0-16.5); Lymphocyte # 1.89 X10^3/ul (0.83-4.51); Lymphocyte % 22.6 % (19-41); Mean Corp Hgb Conc 33.5 g/dL (32-36); Mean Corpuscular Hgb 30.1 pg (27.0-32.0); Mean Corpuscular Volume 89.6 fL (80-94); Mean Platelet Vol. 10.4 fl (6.2-12.0); Monocyte# 0.64 X10^3/uL; Monocyte% 7.6 % (0-10); NRBC Flagged by Analyzer 0 % (0-5); Neutrophil # 5.36 X10^3/uL (2.7-7.7); Neutrophil % 63.9 % (47-70); Platelet Count 255 K/mm3 (150-450); RBC Distribution Width CV 12.5 % (11.6-14.6); RBC Distribution Width SD 41.1 fl (35.1-43.9); Red Blood Count 5.29 M/mm3 (4.6-6.2); White Blood Count 8.4 K/mm3 (4.4-11.0)
[2022-01-29 15:42] LABS: Microalbumin,Random Urine 43.9 mg/L (NO RANGE EST.); Microalbumin:Creatinine Ratio 62.1 mg/g CRE (<30 mg/g CRE)
[2022-01-29 15:45] LABS: ALB/GLOB Ratio 1.2 RATIO (0.9-2.4); AST(SGOT) 13 U/L (15-37); Alanine Aminotransfer ALT/SGPT 24 U/L (16-61); Alkaline Phosphatase 77 U/L (45-117); Anion Gap 5 (5-15); BUN 17 mg/dL (7-18); BUN/Creat Ratio 16.2 RATIO (10-20); Calcium,Total 9.3 mg/dL (8.5-10.1); Chloride 103 mmol/L (98-107); Cholesterol 121 mg/dL (200); Creatinine, Serum 1.05 mg/dL (0.70-1.30); EST Glomerular Filtration Rate 78 mL/min (>60); Est Glom Filt Rate - Afr Amer 94 mL/min (>60); Globulin 3.2 g/dL (2.2-4.2); Glucose 158 mg/dL (74-106); High Density Lipoprotein 48 mg/dL; Potassium 4.2 mmol/L (3.5-5.1); Protein, Total 7.2 g/dL (6.4-8.2); Sodium Level 135 mmol/L (136-145); Triglycerides 54 mg/dL; Very Low Density Lipoprotein 11 mg/dL (5-40)
== END | disposition home or self-care (01) ==
LOC: BIMLAB 14:40
PROVIDERS: PCP Internal Medicine; Referring Provider Internal Medicine; Visit Provider Internal Medicine
DX: E10.42 Type 1 diabetes mellitus with diabetic polyneuropathy (principal); I10 Essential (primary) hypertension
CPT/HCPCS: 36415; 80053; 80061; 82043; 82570; 85025

== ENCOUNTER → 2022-08-07 | Outpatient (CLI) | payer OTHER, SELFPAY ==
[2022-08-07 15:55] LABS: ALB/GLOB Ratio 1.3 RATIO (0.9-2.4); AST(SGOT) 16 U/L (15-37); Alanine Aminotransfer ALT/SGPT 27 U/L (16-61); Albumin, Serum 3.9 g/dL (3.2-5.0); Alkaline Phosphatase 97 U/L (45-117); BUN 12 mg/dL (7-18); BUN/Creat Ratio 13.5 RATIO (10-20); Calcium,Total 8.9 mg/dL (8.5-10.1); Creatinine, Serum 0.89 mg/dL (0.70-1.30); EST Glomerular Filtration Rate 94 mL/min (>60); Est Glom Filt Rate - Afr Amer 114 mL/min (>60); Glucose 102 mg/dL (74-106); Potassium 4.2 mmol/L (3.5-5.1); Protein, Total 6.9 g/dL (6.4-8.2); Sodium Level 142 mmol/L (136-145)
[2022-08-07 15:56] LABS: Anion Gap 8 (5-15); Chloride 105 mmol/L (98-107)
[2022-08-07 16:34] LABS: Hemoglobin A1c 7.2 % (3.8-5.6)
[2022-08-07 16:59] LABS: Microalbumin,Random Urine 17.2 mg/L (NO RANGE EST.); Microalbumin:Creatinine Ratio 75.4 mg/g CRE (<30 mg/g CRE)
== END | disposition home or self-care (01) ==
LOC: BIMLAB 14:28
PROVIDERS: PCP Internal Medicine; Referring Provider Internal Medicine; Visit Provider Internal Medicine
DX: E10.40 Type 1 diabetes mellitus with diabetic neuropathy, unspecified (principal)
CPT/HCPCS: 36415; 80053; 82043; 82570; 83036

== ENCOUNTER → 2023-01-18 | Outpatient (CLI) | payer OTHER, SELFPAY ==
--- NOTE | 2023-01-19 11:06 | STRESSREP ---
Stress Test Report Date: 01/18/2023 Procedure: Exercise tolerance test Indications: [] Consent: Per the patient Procedure: The patient exercised on a Tip protocol for 9 minutes and 17 seconds achieving a peak heart rate of 129 bpm (78% predicted maximal heart rate) with a peak blood pressure 192/84 mmHg and a peak MET capacity of approximately 11 MET's. The baseline ECG demonstrated normal sinus rhythm. The peak exercise ECG demonstrated about [address] depressions in lead III, aVF and V6. [There were no cardiac dysrhythmias pretest, during exercise, or recovery]. The functional capacity was considered normal for age. The patient had no complaint of chest discomfort during exercise or recovery. The examination was discontinued secondary to dyspnea, leg discomfort. Impression: 1. Technically suboptimal stress test as the patient did not reach 85% of maximal age-predicted heart rate 2. Stress test is negative for exercise-induced chest pain. 3. Stress test test is borderline positive for exercise-induced EKG changes of ischemia. 4. Functional capacity is normal for age This note was generated with [employer] software. It may contain incorrect words, spelling, and punctuation that were not noted in checking the note before signing.
== END | disposition home or self-care (01) ==
LOC: CVS 12:04
PROVIDERS: PCP Internal Medicine; Referring Provider Internal Medicine; Visit Provider Internal Medicine
DX: I25.10 Atherosclerotic heart disease of native coronary artery without angina pectoris (principal)
CPT/HCPCS: 93017

== ENCOUNTER → 2024-01-15 | Outpatient (CLI) | payer OTHER, SELFPAY ==
[2024-01-15 16:47] LABS: Absolute Lymphocyte Count 1.96 X10^3/uL (0.83-4.51); Absolute Neutrophil Count 5.8 X10^3/uL (2.0-7.7); Basophil# 0.09 X10^3/uL; Eosinophil# 0.58 X10^3/uL; Eosinophils% 6.3 % (0-5); Hematocrit 43.2 % (40-54); Hemoglobin 14.4 g/dL (13.0-16.5); Lymphocyte # 1.96 X10^3/ul (0.83-4.51); Lymphocyte % 21.1 % (19-41); Mean Corp Hgb Conc 33.3 g/dL (32-36); Mean Corpuscular Hgb 29.9 pg (27.0-32.0); Mean Corpuscular Volume 89.6 fL (80-94); Mean Platelet Vol. 10.5 fl (6.2-12.0); Monocyte# 0.79 X10^3/uL; Monocyte% 8.5 % (0-10); NRBC Flagged by Analyzer 0 % (0-5); Neutrophil # 5.83 X10^3/uL (2.7-7.7); Neutrophil % 62.8 % (47-70); Platelet Count 247 K/mm3 (150-450); RBC Distribution Width CV 12.8 % (11.6-14.6); RBC Distribution Width SD 42.2 fl (35.1-43.9); Red Blood Count 4.82 M/mm3 (4.6-6.2); White Blood Count 9.3 K/mm3 (4.4-11.0)
[2024-01-15 17:02] LABS: ALB/GLOB Ratio 1.2 RATIO (0.9-2.4); AST(SGOT) 18 U/L (15-37); Alanine Aminotransfer ALT/SGPT 22 U/L (16-61); Albumin, Serum 3.7 g/dL (3.2-5.0); Alkaline Phosphatase 109 U/L (45-117); Anion Gap 3 (5-15); BUN 17 mg/dL (7-18); BUN/Creat Ratio 15.9 RATIO (10-20); Calcium,Total 8.8 mg/dL (8.5-10.1); Chloride 109 mmol/L (98-107); Cholesterol 125 mg/dL (200); Creatinine, Serum 1.07 mg/dL (0.70-1.30); EST Glomerular Filtration Rate 76 mL/min (>60); Est Glom Filt Rate - Afr Amer 92 mL/min (>60); Glucose 268 mg/dL (74-106); High Density Lipoprotein 50 mg/dL; Potassium 4.3 mmol/L (3.5-5.1); Protein, Total 6.7 g/dL (6.4-8.2); Sodium Level 140 mmol/L (136-145); Triglycerides 117 mg/dL; Very Low Density Lipoprotein 23 mg/dL (5-40)
[2024-01-15 17:43] LABS: Microalbumin:Creatinine Ratio 374.6 mg/g CRE (<30 mg/g CRE)
== END | disposition home or self-care (01) ==
LOC: BIMLAB 16:10
PROVIDERS: PCP Internal Medicine; Visit Provider Internal Medicine
DX: I10 Essential (primary) hypertension (principal); E10.9 Type 1 diabetes mellitus without complications; E78.5 Hyperlipidemia, unspecified
CPT/HCPCS: 36415; 80053; 80061; 82043; 82570; 85025

== ENCOUNTER → 2024-09-04 | Outpatient (CLI) | payer OTHER, SELFPAY ==
[2024-09-04 10:05] LABS: Absolute Lymphocyte Count 1.44 X10^3/uL (0.83-4.51); Absolute Neutrophil Count 3.8 X10^3/uL (2.0-7.7); Basophil# 0.07 X10^3/uL; Basophil% 1.1 % (0-1); Eosinophil# 0.55 X10^3/uL; Eosinophils% 8.6 % (0-5); Hematocrit 47.3 % (40-54); Hemoglobin 15.8 g/dL (13.0-16.5); Lymphocyte # 1.44 X10^3/ul (0.83-4.51); Lymphocyte % 22.6 % (19-41); Mean Corp Hgb Conc 33.4 g/dL (32-36); Mean Corpuscular Volume 89.8 fL (80-94); Mean Platelet Vol. 10.3 fl (6.2-12.0); Monocyte# 0.52 X10^3/uL; Monocyte% 8.2 % (0-10); NRBC Flagged by Analyzer 0 % (0-5); Neutrophil # 3.78 X10^3/uL (2.7-7.7); Neutrophil % 59.2 % (47-70); Platelet Count 210 K/mm3 (150-450); RBC Distribution Width CV 12.6 % (11.6-14.6); RBC Distribution Width SD 41.4 fl (35.1-43.9); Red Blood Count 5.27 M/mm3 (4.6-6.2); White Blood Count 6.4 K/mm3 (4.4-11.0)
[2024-09-04 10:38] LABS: Anion Gap 4 (5-15); BUN 15 mg/dL (7-18); BUN/Creat Ratio 18.8 RATIO (10-20); Calcium,Total 9.3 mg/dL (8.5-10.1); Chloride 104 mmol/L (98-107); EST Glomerular Filtration Rate 106 mL/min (>60); Est Glom Filt Rate - Afr Amer 128 mL/min (>60); Glucose 197 mg/dL (74-106); PSA,Total - Annual Screen 0.63 ng/mL (0.00-4.00); Potassium 4.6 mmol/L (3.5-5.1); Sodium Level 137 mmol/L (136-145)
[2024-09-04 12:00] LABS: Microalbumin:Creatinine Ratio 542.6 mg/g CRE (<30 mg/g CRE)
== END | disposition home or self-care (01) ==
LOC: LAB 09:40
PROVIDERS: PCP Internal Medicine; Referring Provider Internal Medicine; Visit Provider Internal Medicine
DX: I10 Essential (primary) hypertension (principal); F41.9 Anxiety disorder, unspecified; F32.A Depression, unspecified; F32.9 Major depressive disorder, single episode, unspecified; Z12.5 Encounter for screening for malignant neoplasm of prostate
CPT/HCPCS: 36415; 80048; 82043; 82570; 84153; 85025; G0103